=== PATIENT | female | born 1960 | race Caucasian/White ===

== ENCOUNTER 2024-06-05 07:55 | Day surgery (SDC) | payer MEDICARE, OTHER ==
[~2024-06-05] VITALS: Ht 172.7 cm; Wt 88.1 kg
[~2024-06-05 07:55] MED LIST: ALL DAY ALLERGY10 M4 PO; CEFAZOLIN SODIUM 2 GM/20 ML SYR IV SCH; CLINDAMYCIN PHOSPHATE/D5W 900 MG/50 ML PIGGYBACK IV SCH; IBLOOD GLUCOSE TEST STRIP 1 EA TEST VI PRN; LACTATED RINGER'S 1,000 ML IV SCH; LIDOCAINE HCL 1% 5 ML SDV INJ ONE; ROSUVASTATIN CA20 MG PO; TRANEXAMIC ACID 2,000 MG in SODIUM CHLORIDE 0.9% 100 ML IV SCH
[2024-06-05 08:18] VITALS: BP 151/87
[2024-06-05] MEDS ORDERED: CHLORPHENIRAMINE4 MG PO (08:28)
[2024-06-05] MEDS ORDERED: MONTELUKAST SOD10 MG PO (08:29)
[2024-06-05] MEDS ORDERED: PHENTERMINE HCL30 MG PO (08:30)
[2024-06-05] MEDS ORDERED: NAPROXEN250 MG PO (08:31)
[2024-06-05] MEDS ORDERED: VITAMIN D31250 MC1 PO (08:31)
[2024-06-05] MEDS ORDERED: propofoL 200 MG/20 ML VIAL ONE (09:01)
[2024-06-05] MEDS ORDERED: ondansetron HCL 4 MG/2 ML VIAL ONE (09:01)
[2024-06-05] MEDS ORDERED: Ropivacaine HCl 0.5% 30 ML VIAL ONE (09:01)
[2024-06-05] MEDS ORDERED: MIDAZOLAM HCL 2 MG/2 ML VIAL ONE (09:01)
[2024-06-05] MEDS ORDERED: LIDOCAINE HCL 2% 20 MG/ML VIAL INJ ONE (09:01)
[2024-06-05] MEDS ORDERED: DEXAMETHASONE SOD PHOS 4 MG/ML VIAL ONE ×2 (09:01→10:36)
[2024-06-05] MEDS ORDERED: PROCHLORPERAZINE EDISYLATE 10 MG/2 ML VIAL IV PRN (10:00)
[2024-06-05] MEDS ORDERED: ondansetron HCL 4 MG/2 ML VIAL IV PRN (10:00)
[2024-06-05] MEDS ORDERED: HYDROCODONE/ACETA 7.5/325 TAB PO PRN (10:00)
[2024-06-05] MEDS ORDERED: droPERidol 5 MG/2 ML VIAL IV PRN (10:00)
[2024-06-05] MEDS ORDERED: fentaNYL citrate 50 MCG/ML SDV IV PRN (10:00)
[2024-06-05] MEDS ORDERED: IBLOOD GLUCOSE TEST STRIP 1 EA TEST VI PRN (10:00)
[2024-06-05] MEDS ORDERED: HYDROmorphone HCL 1 MG/ML SYR IV PRN (10:00)
[2024-06-05] MEDS ORDERED: NALOXONE HCL 0.4 MG SYR IV PRN (10:00)
[2024-06-05] MEDS ORDERED: CLINDAMYCIN PHOSPHATE/D5W 900 MG/50 ML PIGGYBACK ONE (10:36)
[2024-06-05] MEDS ORDERED: LACTATED RINGER'S 1,000 ML IV ONE (10:49)
[2024-06-05] MEDS ORDERED: KETOROLAC TROMETHAMINE 30 MG/ML VIAL ONE (10:59)
[2024-06-05] MEDS ORDERED: ACETAMINOPHEN 1,000 MG/100 ML VIAL ONE (11:00)
[2024-06-05] MEDS ORDERED: HYDROCODON-ACE1 EA11 PO (11:13)
--- NOTE | 2024-06-05 11:31 | NUR ---
06/05/24 1131 Thad Messer 1114: PT ARRIVED TO PACU VIA STRETCHER. PT ARRIVED ON 6L VIA MASK. PT REPSONDING TO STIMULI. 1119: PT TITRATED TO RA AT THIS TIME. PT AWAKE AND RESPONDING TO QUESTIONS. PT HAS 2 SURGICAL SITES ON SHOULDER WITH SMALL AMOUNT OF DRAINAGE PRESENT. CRYO CUFF PLACED AT THIS TIME. 1125: PT AWAKE AND ASKING QUESTIONS IN BED.
[2024-06-05 11:44] VITALS: BP 120/82
--- NOTE | 2024-06-05 11:53 | NUR ---
1142 PT ARRIVED TO DAY SURGERY RM 7 VIA STREACHER FROM PACU. REPORT TAKEN FROM TANMAY TRAN. VITALS TAKEN, PT REPORTS 0/10 PAIN. PT BREATHING EQUAL AND UNLABORED. PT SITTING UPRIGHT IN BED AND SIPPING WATER. PT SISTER AT BEDSIDE. PT HAS CRYO CUFF ON L SHOULDER. PT REPORTS NO NAUSEA AT THIS TIME. PT REPORTING NUMBNESS AND TINGLING IN LEFT HAND DUE TO BLOCK, PT ABLE TO MOVE FINGERS ON L HAND, NORMAL PULSE NOTED. CAP REFILL LESS THAN 3 SECONDS. 1145 PT SITTING UPRIGHT SIPPING WATER AND EATING JELLO, SISTER AT BED SIDE. CALL LIGHT WITHIN REACH. PERSONAL ITEMS WITHIN REACH. BED LOW AND LOCKED. PT EDUCATED ON USEING CALL LIGHT.
--- NOTE | 2024-06-05 12:33 | NUR ---
1230 PT USED CALL LIGHT TO ALERT RN THAT PT NEEDS TO URINATE. PT ABLE TO AMBULATE TO BATHROOM, WITH STEADY GAIT.
[2024-06-05 12:36] VITALS: BP 152/72
--- NOTE | 2024-06-05 12:58 | NUR ---
1240 PT BACK IN ROOM, PT ABLE TO VOID 250 MLS OF CLEAR YELLOW URINE. PT ABLE TO AMBULATE BACK TO ROOM. VITALS TAKEN. PT REPORTING 0/10 PAIN. PT REPORTING NO NAUSEA AT THIS TIME. 1245 DISCHARGE INFORMATION GONE OVER WITH PT AND SISTER AT BEDSIDE. PT CHANGED INTO PT'S CLOTHES. IMMOBLIZER SLING PLACED OVER PT CLOTHES. PT HAS CRYO CUFF. IV REMOVED. 1250 PT DISCHARGED FROM DAY SURGERY VIA WHEELCHAIR TO THE FRONT OF THE HOSPTIAL TO PT'S SISTER'S CAR AT THE FRONT OF THE HOSPITAL.
--- NOTE | 2024-06-05 13:09 | OR ---
[facility] [address], [place] [address] Signed DATE OF OPERATION: 06/05/2024 SURGEON: Wellington Farnsworth MD PREOPERATIVE DIAGNOSIS: Rotator cuff tear, left shoulder. POSTOPERATIVE DIAGNOSIS: Partial rotator cuff tear, left shoulder. PROCEDURE PERFORMED: Left shoulder arthroscopy with debridement. SENIOR ASSISTANT MANAGER: None. ANESTHESIA: General. BLOOD LOSS: Minimal. BRIEF HISTORY: Eder is a 64-year-old female with pain in her shoulder. MRI was consistent with a significant rotator cuff tear. Risks, benefits, and alternatives were discussed and she understood, wished to proceed. DESCRIPTION OF PROCEDURE: Once consent was obtained, she was taken to the operating room. After adequate anesthesia, she was placed in the beach chair position. All downside pressure points were well padded. The left shoulder was prepped and draped in a standard sterile fashion. The shoulder injected with 0.25% Marcaine with epinephrine as was subacromial space. Posterior portal was established and the scope was placed in the shoulder without difficulty. Diagnostic arthroscopy showed glenohumeral surfaces to be intact with exception of one small area of full-thickness cartilage loss in the superior aspect of the humerus. The undersurface of the rotator cuff looked completely intact from the biceps tendon all the way to the posterior aspect. The subscapularis was intact. The labrum was intact. The biceps tendon was down into the shoulder and there was no significant tendinosis. The subacromial space showed minimal to no bursitis. It was wide open in the subacromial space. Superior surface of the rotator cuff showed a Electronically Signed By: WELLINGTON FARNSWORTH MD 06/05/24 1309 PATIENT NAME: EDER MERRITT OPERATIVE REPORT DATE OF : 62 REPORT #: [id number] PHYSICIAN: WELLINGTON FARNSWORTH MD PCP: WELLINGTON GOMEZ MD REPORT IS CONFIDENTIAL AND NOT TO BE RELEASED WITHOUT AUTHORIZATION [facility] [address], [place] [address] Signed 10 to 20% partial tear of the supraspinatus of the anterior margin. This was debrided down to bleeding surface. The remainder of the superior surface surface of the rotator cuff was intact. The acromion was type 1. The scope was withdrawn. Portals were closed with 3-0 nylon and dressed with Allevyn and OpSite. She tolerated the procedure well. All sponge, needle, and instrument counts were correct. Wellington Farnsworth MD BA/MARÍAL /[id number] Copies: ~ Electronically Signed By: WELLINGTON FARNSWORTH MD 06/05/24 1309 PATIENT NAME: EDER MERRITT OPERATIVE REPORT DATE OF : 62 REPORT #: [id number] PHYSICIAN: WELLINGTON FARNSWORTH MD PCP: WELLINGTON GOMEZ MD REPORT IS CONFIDENTIAL AND NOT TO BE RELEASED WITHOUT AUTHORIZATION
[2024-06-05] MEDS ORDERED: SEVOFLURANE 250 ML BTL INH ONE (16:06)
[2024-06-05] MEDS ORDERED: CELECOXIB 200 MG CAP PO SCH (17:00)
== END 2024-06-05 12:50 | disposition home or self-care (01) ==
LOC: DS 07:55
PROVIDERS: ATTEND Specialist
PROC: 0RBK4ZZ Excision of Left Shoulder Joint, Percutaneous Endoscopic Approach (ICD-10-PCS; principal; 2024-06-05 10:00)
DX: M75.112 Incomplete rotator cuff tear or rupture of left shoulder, not specified as traumatic (principal); M19.90 Unspecified osteoarthritis, unspecified site; E78.00 Pure hypercholesterolemia, unspecified; Z88.0 Allergy status to penicillin; Z88.1 Allergy status to other antibiotic agents; Z79.899 Other long term (current) drug therapy; Z90.710 Acquired absence of both cervix and uterus
CPT/HCPCS: 01630; 64415; J0131; J1100; J1885; J2250; J2405; J2704; J2795; J7121